=== PATIENT | female | born 1945 | race Caucasian/White ===

== ENCOUNTER 2017-11-28 14:34 | Inpatient (IN) ==
--- NOTE | 2017-11-28 15:26 | XR ---
EXAM DATE: 11/28/2017 3:23 PM EDT AGE/SEX: 71 years / Female INDICATIONS: Shortness of breath. CLINICAL DATA: This is the patient's initial encounter. Patient reports that signs and symptoms have been present for 1 day and indicates a pain score of 0/10. MEDICAL/SURGICAL HISTORY: Congestive heart failure. Pacemaker. COMPARISON: [facility] [place], CHEST SINGLE AP, 04/16/2015. . FINDINGS: A single AP view of the chest demonstrates the lungs to be symmetrically aerated without evidence of mass, infiltrate or effusion. The patient is a left-sided bipolar pacer. The heart is enlarged.. Oss eous structures are intact. CONCLUSION: Heart remains enlarged. Lungs are clear. Electronically signed by: John Braswell MD 11/28/2017 3:25 PM EDT
--- NOTE | 2017-11-28 15:27 | ED ---
HPI General Chief Complaint: Chest Pain Stated Complaint: SOB Time Seen by Provider: 11/28/17 14:49 Source: patient Mode of arrival: ambulatory Limitations: no limitations History of Present Illness HPI narrative: 71-year-old female complains of coughing shortness of breath and chest pain. Patient states that she started having persistent dry cough for the past 4 days. Patient states that occasionally she started having substernal chest pain with coughing spells. Patient states that she does not have chest pain with bowel severe coughing. Patient states the pain aching pain substernal pain associated with coughing. Patient denies any pain radiation. Patient denies palpitation nausea diaphoresis. Patient has history of CHF and status post AICD placement. Patient is a smoker. Patient states that she has occasionally wheezing. Patient denies any fever chills. Patient denies history hypertension, diabetes, hyperlipidemia. 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 complaint: chest pain Complete Quality Measures for STEMI Alert Patients STEMI Alert: No Onset (ago): day(s) Duration: intermittent Onset: other (Chest pain associated with severe bouts of coughing) Pain location: substernal Severity: moderate Severity scale (1-10): 5 Quality: aching Pain radiation: none Relieving factors: nothing Exacerbating factors: other (Coughing) Context: recent illness Associated symptoms: cough Treatments prior to arrival chest pain: none Related Data Home Medications Medication Instructions Recorded Confirmed carvedilol 3.125 mg PO DAILY 11/28/17 11/28/17 furosemide 20 mg PO BID 11/28/17 11/28/17 lisinopril 2.5 mg PO DAILY 11/28/17 11/28/17 Allergies Allergy/AdvReac Type Severity Reaction Status Date / Time erythromycin base Allergy Severe Unverified 11/03/16 12:31 Review of Systems ROS: all other systems reviewed are negative [facility] Medical History Medical History Cardiac defibrillator in place (Acute) Congestive heart failure (Acute) Social History Social History Substance History: No History of Abuse Second Hand Smoke Exposure: Yes Smoking Status: Current every day smoker Tobacco Type: Cigarettes How Often Do You Have a Drink Containing Alcohol: Never Recent Travel in [facility] within the Last 8 Weeks: No Recent Out of Country Travel within the Last 8 Weeks: No Immunization History Tetanus Immunization: Unsure Hx Influenza Vaccine This Season: Yes Exam Narrative Exam Narrative: GENERAL: Well-nourished, well-developed patient. SKIN: Focused skin assessment warm/dry. HEAD: Normocephalic. EYES: No scleral icterus. No injection or drainage. NECK: Supple, trachea midline. No JVD or lymphadenopathy. CARDIOVASCULAR: Regular rate and rhythm without murmurs, gallops, or rubs. RESPIRATORY: Breath sounds equal bilaterally. No accessory muscle use. Mild expiratory wheezes bilaterally. Few rhonchi at the bases. GASTROINTESTINAL: Abdomen soft, non-tender, nondistended. MUSCULOSKELETAL: No cyanosis, or edema. BACK: Nontender without obvious deformity. No CVA tenderness. Neurologic exam normal. Course Initial Documented Vital Signs Temperature 97.5 F L 11/28/17 14:35 Pulse Rate 110 H 11/28/17 14:35 Respiratory Rate 22 11/28/17 14:35 Blood Pressure 146/76 H 11/28/17 14:35 Pulse Oximetry 95 11/28/17 14:35 Last Documented Vital Signs Temperature 97.8 F 11/28/17 14:48 Pulse Rate 90 11/28/17 17:22 Respiratory Rate 20 11/28/17 15:22 Blood Pressure 167/84 H 11/28/17 17:22 Pulse Oximetry 95 11/28/17 17:24 Medical Decision Making MDM Narrative Medical decision making narrative: 71-year-old female with coughing shortness of breath and chest pain associated with the coughing. Patient has history of CHF and status post AICD placement. EKG showed pacer rhythm. Medical Screen Exam Complete: Yes Emergency Medical Condition: Yes Differential Diagnosis Differential Diagnosis: Differential diagnosis including bronchitis, pneumonia, PE, pneumothorax, angina, ND. Lab Data Lab results reviewed: Yes I reviewed the patient's lab results. Result diagrams: 11/28/17 15:40 11/28/17 15:40 Lab Results 11/28/17 11/28/17 11/28/17 Range/Units 15:40 15:40 15:40 WBC 8.0 (4.0-11.0) th/mm3 RBC 5.11 (4.00-5.30) mil/mm3 Hgb 14.9 (11.6-15.3) gm/dL Hct 45.2 (35.0-46.0) % MCV 88.5 (80.0-100.0) fL MCH 29.2 (27.0-34.0) pg MCHC 33.0 (32.0-36.0) % RDW 14.1 (11.6-17.2) % Plt Count 161 (150-450) th/mm3 MPV 9.5 (7.0-11.0) fL Neut % (Auto) 64.1 (16.0-70.0) % Lymph % (Auto) 28.6 (9.0-44.0) % [place] % (Auto) 6.9 (0.0-8.0) % Eos % (Auto) 0.0 (0.0-4.0) % Baso % (Auto) 0.4 (0.0-2.0) % Neut # (Auto) 5.1 (1.8-7.7) th/mm3 Lymph # (Auto) 2.3 (1.0-4.8) th/mm3 [place] # (Auto) 0.6 (0.0-0.9) th/mm3 Eos # (Auto) 0.0 (0.0-0.4) th/mm3 Baso # (Auto) 0.0 (0.0-0.2) th/mm3 WBC Differential . Differential Comment Auto diff final PT 11.5 (9.8-11.6) sec INR 1.1 Ratio APTT 28.7 (24.3-30.1) sec Sodium 141 (136-145) meq/L Potassium 4.0 (3.5-5.1) meq/L Chloride 109 H (98-107) meq/L Carbon Dioxide 22.9 (21.0-32.0) meq/L Anion Gap 9 (5-15) meq/L BUN 18 (7-18) mg/dL Creatinine 0.86 (0.50-1.00) mg/dL Estimated GFR 65 L (>89) mL/min Random Glucose 136 H (74-106) mg/dL Calcium 9.0 (8.5-10.1) mg/dL Total Bilirubin 2.5 H (0.2-1.0) mg/dL AST 20 (15-37) U/L ALT 24 (10-53) U/L Alkaline Phosphatase 75 (45-117) U/L Total Creatine Kinase (26-192) U/L Troponin I 0.21 H (0.02-0.05) ng/mL B-Natriuretic Peptide (0-100) pg/mL Total Protein 7.6 (6.4-8.2) g/dL Albumin 3.7 (3.4-5.0) g/dL 11/28/17 11/28/17 Range/Units 15:40 15:40 WBC (4.0-11.0) th/mm3 RBC (4.00-5.30) mil/mm3 Hgb (11.6-15.3) gm/dL Hct (35.0-46.0) % MCV (80.0-100.0) fL MCH (27.0-34.0) pg MCHC (32.0-36.0) % RDW (11.6-17.2) % Plt Count (150-450) th/mm3 MPV (7.0-11.0) fL Neut % (Auto) (16.0-70.0) % Lymph % (Auto) (9.0-44.0) % [place] % (Auto) (0.0-8.0) % Eos % (Auto) (0.0-4.0) % Baso % (Auto) (0.0-2.0) % Neut # (Auto) (1.8-7.7) th/mm3 Lymph # (Auto) (1.0-4.8) th/mm3 [place] # (Auto) (0.0-0.9) th/mm3 Eos # (Auto) (0.0-0.4) th/mm3 Baso # (Auto) (0.0-0.2) th/mm3 WBC Differential Differential Comment PT (9.8-11.6) sec INR Ratio APTT (24.3-30.1) sec Sodium (136-145) meq/L Potassium (3.5-5.1) meq/L Chloride (98-107) meq/L Carbon Dioxide (21.0-32.0) meq/L Anion Gap (5-15) meq/L BUN (7-18) mg/dL Creatinine (0.50-1.00) mg/dL Estimated GFR (>89) mL/min Random Glucose (74-106) mg/dL Calcium (8.5-10.1) mg/dL Total Bilirubin (0.2-1.0) mg/dL AST (15-37) U/L ALT (10-53) U/L Alkaline Phosphatase (45-117) U/L Total Creatine Kinase 63 (26-192) U/L Troponin I (0.02-0.05) ng/mL B-Natriuretic Peptide Greater than 5000 H (0-100) pg/mL Total Protein (6.4-8.2) g/dL Albumin (3.4-5.0) g/dL Imaging Data Attestation: I personally reviewed and interpreted this imaging study as follows : Radiologist's impression: Chest X-Ray 11/28/17 15:06 CONCLUSION: Heart remains enlarged. Lungs are clear. Discharge Plan Discharge Disposition Patient Disposition: 30 Still Patient Discharge Details Diagnosis: Non-ST elevation ND (NSTEMI), Cardiomyopathy Physicians Team ED Provider: Gio Freeman Primary Care Provider: UNKNOWN, Rxs /Orders / Referrals /Forms Prescriptions: No Action carvedilol 3.125 mg Tablet 3.125 mg PO DAILY RF: 0 furosemide 20 mg Tablet 20 mg PO BID RF: 0 lisinopril 2.5 mg Tablet 2.5 mg PO DAILY RF: 0 Discharge Instructions Patient Printed Instructions: Chest Pain (ED) Discharge Interventions Interventions: Vital Signs Last Done: 11/28/17 17:22 Status ED Status: With Doctor
[2017-11-28 15:54] LABS: Baso % (Auto) 0.4 % (0.0-2.0); Hematocrit 45.2 % (35.0-46.0); Hemoglobin 14.9 gm/dL (11.6-15.3); Lymph # (Auto) 2.3 th/mm3 (1.0-4.8); Lymph % (Auto) 28.6 % (9.0-44.0); Mean Corpuscular Hemoglobin 29.2 pg (27.0-34.0); Mean Corpuscular Volume 88.5 fL (80.0-100.0); Mean Platelet Volume 9.5 fL (7.0-11.0); Mono # (Auto) 0.6 th/mm3 (0.0-0.9); Mono % (Auto) 6.9 % (0.0-8.0); Neut # (Auto) 5.1 th/mm3 (1.8-7.7); Neut % (Auto) 64.1 % (16.0-70.0); Platelet Count 161 th/mm3 (150-450); Red Blood Count 5.11 mil/mm3 (4.00-5.30); Red Cell Distribution Width 14.1 % (11.6-17.2)
[2017-11-28 16:03] LABS: Activated Partial Thrombo Time 28.7 sec (24.3-30.1); INR 1.1 Ratio; Prothrombin Time 11.5 sec (9.8-11.6)
[2017-11-28 16:15] LABS: Albumin 3.7 g/dL (3.4-5.0); Anion Gap 9 meq/L (5-15); Aspartate Aminotransferase 20 U/L (15-37); Blood Urea Nitrogen 18 mg/dL (7-18); Carbon Dioxide 22.9 meq/L (21.0-32.0); Chloride 109 meq/L (98-107); Glomerular Filtration Rate 65 mL/min (>89); Glucose,Random 136 mg/dL (74-106); Sodium 141 meq/L (136-145)
[2017-11-28 16:16] LABS: Alanine Aminotransferase 24 U/L (10-53)
[2017-11-28 16:20] LABS: Alkaline Phosphatase 75 U/L (45-117); Total Protein 7.6 g/dL (6.4-8.2); Troponin I 0.21 ng/mL (0.02-0.05)
--- NOTE | 2017-11-28 18:14 | P.HPIM ---
History of Present Illness Primary Care Physician: UNKNOWN History of Present Illness: 71 year old female with history of CHF and severe nonischemic cardiomyopathy with AICD in place presenting with worsening shortness of breath. The patient reports at baseline she has shortness of breath chronically but in the last three days it has acutely worsened. She denies any lower extremity edema. She reports she has to remain upright in order to breathe. She endorses paroxysmal nocturnal dyspnea and severe orthopnea. She complains of a dry cough that is also chronic but has acutely worsened in the last couple days. She also feels that the lisinopril might have been contributing to her cough. She endorses substernal chest pain that she attributes to coughing. She also complains of back pain from the position she has been having to maintain in order to breathe. She smokes about 2 cigarettes a day but hasn't had any in the past 3-4 weeks. She denies fever, abdominal pain , nausea, vomiting, or dysuria. She endorses some wheezing. Her exercise tolerance is extremely poor and lately in the past couple days she states she hasn't been able to even walk a few steps without having to stop to catch her breath. She follows with a manager stone in [place]. She states her last echocardiogram was back in April this year. The last time she was admitted here at [place] was in March 2015 where she was first diagnosed with congestive heart failure. At that time echocardiogram showed EF 15-20% with diffuse hypokinesis; cardiac catheterization was also done which showed severely reduced of EF 10-15% and single-vessel coronary artery disease involving a small caliber obtuse marginal. She was discharged with a LifeVest and ultimately had an AICD placed. We discussed her code status at length and the patient states that even though her son and granddaughter may disagree, she does not wish to have CPR or intubation in the event that she coded. - Diagnosis (1) CHF exacerbation (2) Non-ST elevation NE (NSTEMI) Review of Systems All other systems reviewed negative except as stated in [facility] - History History Provided By: Patient - Medical History Medical History: Medical History (Last Reviewed 11/28/17 @ 15:25 by Gio Freeman MD) Cardiac defibrillator in place Congestive heart failure - Surgical History Surgical History: Surgical History (Last Updated 11/28/17 @ 20:55 by Whitney Onofre MD) H/O cardiac catheterization History of implantable cardioverter-defibrillator (ICD) placement - Family History Family History: Family History (Last Updated 11/28/17 @ 18:23 by Whitney Onofre MD) Brother Coronary artery disease Mother Coronary artery disease Sister Coronary artery disease Other Diabetes Hypertension - Social History I have reviewed the patient's Social History: Yes - Tobacco History Second Hand Smoke Exposure: Yes Tobacco Use In Past 30 Days: Yes Smoking Status: Current every day smoker Tobacco Type: Cigarettes - Alcohol History How Often Do You Have a Drink Containing Alcohol: Never - Substance Use History Substance History: No History of Abuse - Travel History Recent Travel in the [place] Within the Last 8 Weeks: No Recent Travel Out of the Country Within the Last 8 Weeks: No - Immunization History Tetanus Immunization: Unsure Hx Influenza Vaccine This Season: Yes Medications and Allergies Allergies Allergy/AdvReac Type Severity Reaction Status Date / Time erythromycin base Allergy Severe Unverified 11/03/16 12:31 Home Medications Medication Instructions Recorded Confirmed Type carvedilol 3.125 mg PO DAILY 11/28/17 11/28/17 History furosemide 20 mg PO BID 11/28/17 11/28/17 History lisinopril 2.5 mg PO DAILY 11/28/17 11/28/17 History Exam Vital signs: Vital Signs 11/28/17 14:35 11/28/17 14:48 11/28/17 15:22 Temperature 97.5 F L 97.8 F Pulse Rate 110 H 102 H 90 Respiratory Rate 22 26 H 20 Blood Pressure 146/76 H 161/72 H Pulse Oximetry 95 99 11/28/17 17:22 11/28/17 17:24 Temperature Pulse Rate 90 Respiratory Rate Blood Pressure 167/84 H Pulse Oximetry 95 95 Intake & Output 11/27/17 11/28/17 11/28/17 18:59 06:59 18:59 Weight 51.256 kg Narrative: GENERAL: Elderly, thin, chronically ill-appearing female sitting up in bed in [facility]. SKIN: Warm and dry. HEENT: AT/NC. Pupils equal and round. MMM. NECK: Supple no tender LAD or JVD. HEART: Distant heart sounds but otherwise RRR no m/r/g. LUNGS: Appears short of breath when she talks. She has some wheezes and rhonchi at the bases. ABDOMEN: +BS, soft, NT, ND. EXTREMITIES: No LE edema. 2+ pedal pulses. NEURO: Awake and alert. Results - Labs CBC & Chem 7: 11/28/17 15:40 11/28/17 15:40 Labs: Short CBC 11/28/17 Range/Units 15:40 WBC 8.0 (4.0-11.0) th/mm3 Hgb 14.9 (11.6-15.3) gm/dL Hct 45.2 (35.0-46.0) % Plt Count 161 (150-450) th/mm3 BMP 11/28/17 15:40 Sodium 141 Potassium 4.0 Chloride 109 H Carbon Dioxide 22.9 BUN 18 Creatinine 0.86 Calcium 9.0 Cardiac Enzymes 11/28/17 11/28/17 Range/Units 15:40 15:40 Total Creatine Kinase 63 (26-192) U/L Troponin I 0.21 H (0.02-0.05) ng/mL Liver Function 11/28/17 Range/Units 15:40 Total Bilirubin 2.5 H (0.2-1.0) mg/dL AST 20 (15-37) U/L ALT 24 (10-53) U/L Alkaline Phosphatase 75 (45-117) U/L Albumin 3.7 (3.4-5.0) g/dL - Imaging Impressions Chest X-Ray 11/28/17 15:06 CONCLUSION: Heart remains enlarged. Lungs are clear. Caprini VTE Risk Assessment Caprini VTE Risk Assessment: Moderate/High Risk (score >= 2) Caprini Risk Assessment Model: Point Value = 1 Point Value = 2 Point Value = 3 Point Value = 5 Age 41-60 Minor surgery BMI > 25 kg/m2 Swollen legs Varicose veins or History of unexplained or recurrent spontaneous Oral contraceptives or hormone replacement Sepsis (< 1 month) Serious lung disease, including pneumonia (< 1 month) Abnormal pulmonary function Acute myocardial infarction Congestive heart failure (< 1 month) History of inflammatory bowel disease Medical patient at bed rest Age 61-74 Arthroscopic surgery Major open surgery (> 45 min) Laparoscopic surgery (> 45 min) Malignancy Confined to bed (> 72 hours) Immobilizing plaster cast Central venous access Age >= 75 History of VTE Family history of VTE Factor V Leiden Prothrombin [id number] Lupus anticoagulant Anticardiolipin antibodies Elevated serum homocysteine Heparin-induced thrombocytopenia Other congenital or acquired thrombophilia Stroke (< 1 month) Elective arthroplasty Hip, pelvis, or leg fracture Acute spinal cord injury (< 1 month) Prophylaxis Regimen: Total Risk Factor Score Risk Level Prophylaxis Regimen 0-1 Low Early ambulation 2 Moderate Order ONE of the following: *Sequential Compression Device (SCD) *Heparin 5000 units SQ BID 3-4 Higher Order ONE of the following medications: *Heparin 5000 units SQ TID *Enoxaparin/Lovenox 40 mg SQ daily (WT < 150 kg, CrCl > 30 mL/min) *Enoxaparin/Lovenox 30 mg SQ daily (WT < 150 kg, CrCl > 10-29 mL/min) *Enoxaparin/Lovenox 30 mg SQ BID (WT < 150 kg, CrCl > 30 mL/min) AND/OR *Sequential Compression Device (SCD) 5 or more Highest Order ONE of the following medications: *Heparin 5000 units SQ TID (Preferred with Epidurals) *Enoxaparin/Lovenox 40 mg SQ daily (WT < 150 kg, CrCl > 30 mL/min) *Enoxaparin/Lovenox 30 mg SQ daily (WT < 150 kg, CrCl > 10-29 mL/min) *Enoxaparin/Lovenox 30 mg SQ BID (WT < 150 kg, CrCl > 30 mL/min) AND *Sequential Compression Device (SCD) Assessment and Plan - Assessment (1) CHF exacerbation Code(s): I50.9 - Heart failure, unspecified Status: Acute (2) Non-ST elevation NE (NSTEMI) Code(s): I21.4 - Non-ST elevation (NSTEMI) myocardial infarction Status: Acute - Plan 71-year-old female with severe nonischemic cardiomyopathy with AICD in place admitted for acute CHF exacerbation. 1. CHF exacerbation BNP greater than 5000 CXR demonstrating cardiomegaly otherwise no pulmonary edema, personally reviewed by me Troponin mildly elevated 0.21 likely secondary to heart strain Lasix 40 mg IV twice daily though I am not sure how much this will improve her symptoms given no significant pulmonary edema Check 2D echo since it has been greater than 6 months Resume home carvedilol and lisinopril Start spironolactone Consider the addition of digoxin for symptom improvement Consider palliative care consult as patient with end-stage CHF Cardiology consultation 2. NSTEMI/chest pain Troponin 0.21, likely secondary to demand ischemia from CHF exacerbation EKG shows ventricularly paced rhythm Cardiology has been consulted. In the ED, Dr. Quach was reached who did not recommend heparin drip as he felt the elevated troponin was also from demand Nevertheless, will trend serial enzymes and EKGs Morphine PRN chest pain Supplemental O2 to maintain sats above 92% Nitro paste q6 ASA daily Resume home carvedilol DVT prophylaxis: Lovenox Code Status: DNR Discussed Condition With: The patient and Dr. Freeman
[2017-11-28] MEDS ORDERED: Acetaminophen 325 MG Tablet PO PRN (18:19)
[2017-11-28] MEDS ORDERED: Bisacodyl 10 MG Supp RECTAL PRN (18:19)
[2017-11-28] MEDS ORDERED: Morphine Inj 4 MG/ML Vial IV.PUSH PRN (21:01)
[2017-11-28] MEDS: Senna/Docusate Sodium 8.6/50 MG Tablet PO SCH (21:26)
[2017-11-28 22:26] LABS: Troponin I 0.18 ng/mL (0.02-0.05)
[2017-11-28 23:00] LABS: Bacteria,Urine Rare /hpf; Bilirubin,Urine Negative (Negative); Clarity,Urine Clear (Clear); Color,Urine Straw (Yellw/Straw); Glucose,Urine (UA) Negative (Negative); Hyaline Casts,Urine 10 /lpf (0-3); Leukocyte Esterase,Urine Moderate (Negative); Nitrite,Urine Negative (Negative); Specific Gravity,Urine 1.004 (1.002-1.035); Squamous Epithelial Cell,Urine 1 /hpf (0-5)
[2017-11-29 06:47] LABS: Hematocrit 42.6 % (35.0-46.0); Hemoglobin 14.2 gm/dL (11.6-15.3); Mean Corpuscular HGB Conc 33.3 % (32.0-36.0); Mean Corpuscular Hemoglobin 29.5 pg (27.0-34.0); Mean Corpuscular Volume 88.6 fL (80.0-100.0); Mean Platelet Volume 9.5 fL (7.0-11.0); Platelet Count 137 th/mm3 (150-450); Red Blood Count 4.81 mil/mm3 (4.00-5.30); White Blood Count 5.3 th/mm3 (4.0-11.0)
[2017-11-29 07:40] LABS: Calcium 8.6 mg/dL (8.5-10.1); Carbon Dioxide 29.6 meq/L (21.0-32.0); Potassium 3.2 meq/L (3.5-5.1)
[2017-11-29 07:43] LABS: Troponin I 0.21 ng/mL (0.02-0.05)
[2017-11-29] MEDS ORDERED: Aspirin 325 MG Tablet PO SCH (09:00)
[2017-11-29] MEDS: Spironolactone 25 MG Tablet PO SCH (09:29)
[2017-11-29] MEDS: Lisinopril 5 MG Tablet PO SCH (09:29)
[2017-11-29] MEDS: Enoxaparin Inj 40 MG/0.4 ML Syringe SQ SCH (09:30)
--- NOTE | 2017-11-29 12:31 | MB ---
cc: Armando York DO DATE: 11/29/2017 REASON FOR CONSULTATION: Shortness of breath, elevated troponin. HISTORY OF PRESENT ILLNESS: Keshia Arthur is a pleasant 71-year-old female who presented to [facility] due to shortness of breath. She states that at baseline she has shortness of breath chronically, but the past 3-4 days it has been getting acutely worse. She denies any lower extremity edema. In discussing her dietary habits, she states that she eats at home mostly, but does put some mild salt on her food. She does not watch her weights at home. She has also noticed some shortness of breath while lying flat at night. Lastly, she has had a dry cough, which seems to be worse when she lies flat. Lastly, she does have some chest pain, but it hurts more with coughing. In seeing her, she states that after being diuresed lately last night that her breathing is better but not back to normal yet. She follows with Dr. Burk in [place], but is planning to move here to [facility] in the near future. PAST MEDICAL HISTORY: 1. Nonischemic cardiomyopathy. 2. Tobacco abuse. 3. Mild to moderate coronary artery disease. PAST SURGICAL HISTORY: 1. Cardiac catheterization (04/18/2015). Left main normal. LAD normal with 3 diagonals. Left circumflex tortuous, but no significant disease. First OM was small with 90% diffuse stenosis. Second OM was small and 100% occluded in the proximal to mid portion. The distal segment fills retrogradely from the LAD. Third OM 30%. RCA has a 50% long tubular lesion. 2. Unknown AICD placement. ALLERGIES: ERYTHROMYCIN. MEDICATIONS: 1. Coreg 3.125 mg daily. 2. Lisinopril 2.5 mg daily. 3. Lasix 20 mg daily (previously on 20 mg b.i.d., but changed in 05/2017). FAMILY HISTORY: Denies premature coronary artery disease or sudden cardiac within the family. SOCIAL HISTORY: The patient denies tobacco patient denies alcohol or drug abuse. She does smoke anywhere from no cigarettes to 3 cigarettes a day. She is contemplating quitting at this time. REVIEW OF SYSTEMS: Fourteen systems were reviewed including osteopathic. Pertinent positives and negatives above, otherwise negative. PHYSICAL EXAMINATION: VITAL SIGNS: Temperature 98.1, heart rate 94, blood pressure 135/79, respirations 18, pulse oximetry 95% on room air. GENERAL: The patient appears well, in no acute distress, alert, awake and oriented x3. HEENT: Extraocular muscles intact. Mucous membranes moist. NECK: Supple. No JVD at 45 degrees. No carotid bruits heard bilaterally. Carotid upstroke is brisk in nature. HEART: Regular rate and rhythm. Positive first and second heart sounds with no murmurs, gallops or rubs. LUNGS: Decreased breath sounds bilaterally with mild wheezing noted. ABDOMEN: Soft, nontender, nondistended, no organomegaly noted. EXTREMITIES: Show no clubbing, cyanosis or edema. Femoral and distal pulses are intact bilaterally. NEUROLOGIC: No focal deficits. SKIN: Warm, dry and intact. OSTEOPATHIC: No kyphoscoliosis, lordosis, or paraspinal tender points. LABORATORY DATA: Hemoglobin 14.2, hematocrit 42.6, platelets 137. Potassium 3.2, BUN 0.85, BUN 22, creatinine 0.85. Troponin 0.21. BNP greater than 5000. Electrocardiogram (11/29/2017 at 0333): Sinus rhythm, ventricular paced. IMPRESSION: 1. Acute decompensated systolic heart failure. 2. History of nonischemic cardiomyopathy with an ejection fraction of 15%-20% (04/18/2015) with an AICD in place. 3. Elevated troponin, most likely type 2 non-ST elevation myocardial infarction. 4. Tobacco abuse. 5. Shortness of breath. 6. Chest pain, which appears to be musculoskeletal in nature. RECOMMENDATIONS: 1. Ms. Arthur presented with significant shortness of breath and appears to be fluid overloaded with acute decompensated heart failure. 2. We will attempt to diurese her as possible. 3. Overall, she has been on the same heart failure medications for some time and I believe that these should be escalated to try to attempt to help her with her cardiomyopathy as much as possible. 4. I spoke to her about her salt intake. 5. I also did discuss with her keeping her weights at home and if elevating more than 2 pounds in 24 hours or 3 pounds in 48 hours, she should increase her diuretic. 6. As far as her elevated troponins, this appears to be a type 2 [id number] myocardial infarction. I did discuss with her considerations of an inpatient stress testing, but she overall would like to avoid it due to a previous episode of getting sick from it and also DNR status. Ultimately, I feel that her elevated troponins are due to the heart failure. 7. She did have some minor chest pain, but this appeared to happen when she was coughing, consistent with musculoskeletal chest pain. 8. I did speak to her for greater than 3 minutes about tobacco cessation. 9. She plans on moving here to [facility], and I did discuss with her that she can follow up with me in the office or with the previous watch supervisor she had seen here at that time. Thank you for allowing me to see Keshia Arthur. If there are any questions, please do not hesitate to call. DO MARVA Broderick/katelynn , 11:49 AM , 12:02 PM DELIA
[2017-11-29] MEDS: Senna/Docusate Sodium 8.6/50 MG Tablet PO SCH ×2 (13:14→21:01)
--- NOTE | 2017-11-29 13:14 | ECHRPT ---
Indication: CARDIOMYOPATHY CONCLUSIONS The left ventricular systolic function is severely reduced with an estimated ejection fraction less than 20%. Severely dilated left ventricle. There is global left ventricular dysfunction. The right ventricular systoilc function is moderately decreased. Mild mitral valve regurgitation. BP: / HR: Rhythm: MEASUREMENTS (Male / Female) Normal Values Technical Quality:Fair 2D ECHO LV Diastolic Diameter PLAX 6.8 cm 4.2 - 5.9 / 3.9 - 5.3 cm LV Systolic Diameter PLAX 6.5 cm IVS Diastolic Thickness 1.0 cm 0.6 - 1.0 / 0.6 - 0.9 cm LVPW Diastolic Thickness 1.0 cm 0.6 - 1.0 / 0.6 - 0.9 cm LV Relative Wall Thickness 0.3 RV Internal Dim ED PLAX 2.5 cm LVOT Diameter 1.8 cm LV Ejection Fraction MOD BP 17.1 % >= 55 % LV Ejection Fraction MOD 4C 12.3 % LV Ejection Fraction 4C AL 11.6 % LV Ejection Fraction MOD 2C 23.1 % LV Ejection Fraction 2C AL 22.2 % M-MODE Aortic Root Diameter MM 2.4 cm LA Systolic Diameter MM 3.6 cm LA Ao Ratio MM 1.5 AV Cusp Separation MM 1.4 cm DOPPLER AV Peak Velocity 115.0 cm/s AV Peak Gradient 5.3 mmHg LVOT Peak Velocity 82.9 cm/s LVOT Peak Gradient 2.7 mmHg AV Area Cont Eq pk 1.8 cm MV Area PHT 6.5 cm TR Peak Velocity 281.0 cm/s TR Peak Gradient 31.6 mmHg Right Atrial Pressure 10.0 mmHg Pulmonary Artery Systolic Pressu 41.6 mmHg Right Ventricular Systolic Press 41.6 mmHg PV Peak Velocity 84.2 cm/s PV Peak Gradient 2.8 mmHg FINDINGS LEFT VENTRICLE The left ventricular systolic function is severely reduced with an estimated ejection fraction less than 20%. Severely dilated left ventricle. Wall thickness is normal. There is global left ventricular dysfunction. RIGHT VENTRICLE A pacemaker wire is noted. The right ventricular systoilc function is moderately decreased. LEFT ATRIUM The left atrial size is normal. RIGHT ATRIUM The right atrial size is normal. There is a pacemaker wire present in the right atrial cavity. ATRIAL SEPTUM Normal atrial septal thickness without atrial level shunting by limited color doppler interrogation. AORTA The aortic root and proximal ascending aorta are normal in size on limited imaging. MITRAL VALVE Structurally normal mitral valve. Mild mitral valve regurgitation. The mitral valve regurgitation jet is directed centrally due to poor leaflet coaptation. No mitral valve stenosis. AORTIC VALVE Trileaflet aortic valve. No aortic valve stenosis or regurgitation. TRICUSPID VALVE Structurally normal tricuspid valve. There is trace tricuspid valve regurgitation. The estimated pulmonary arterial pressure is 41.6 mmHg. PULMONARY VALVE No pulmonary valve regurgitation or stenosis. VESSELS The inferior vena cava is normal in size. PERICARDIUM No pericardial effusion. Armando York DO (Electronically Signed) Final Date:29 November 2017 13:13
[2017-11-29] MEDS ORDERED: Potassium Chloride 25 MEQ Effervescent Tablet PO ONE (14:39)
--- NOTE | 2017-11-29 14:43 | P.PN ---
Subjective Interval history: complains of dry cough - for months- almost at the same time with SEMAJ brian GUZMAN- but nothing done chronic smoker- cut down to 1-2 sticks past 2 weeks Physical Exam Vital signs: Vital Signs 11/28/17 14:48 11/28/17 15:22 11/28/17 17:22 Temperature 97.8 F Pulse Rate 102 H 90 90 Respiratory Rate 26 H 20 Blood Pressure 161/72 H 167/84 H Pulse Oximetry 99 95 11/28/17 17:24 11/28/17 19:00 11/28/17 20:00 Temperature 98 F Pulse Rate 97 H 95 H Respiratory Rate 18 24 Blood Pressure 151/85 H 147/91 H Pulse Oximetry 95 93 L 95 11/28/17 21:57 11/29/17 00:00 11/29/17 03:43 Temperature 98.3 F Pulse Rate 74 80 82 Respiratory Rate 24 24 16 Blood Pressure 136/77 Pulse Oximetry 98 95 11/29/17 04:00 11/29/17 07:00 11/29/17 08:00 Temperature 97.8 F 98.1 F Pulse Rate 80 91 H 76 Respiratory Rate 22 18 Blood Pressure 145/91 H 135/79 Pulse Oximetry 97 95 11/29/17 09:00 11/29/17 10:00 11/29/17 12:00 Temperature 97.9 F Pulse Rate 96 H 72 68 Respiratory Rate 18 Blood Pressure 138/67 Pulse Oximetry 95 11/29/17 13:00 11/29/17 14:00 Temperature Pulse Rate 68 78 Respiratory Rate Blood Pressure Pulse Oximetry Intake & Output 11/28/17 11/29/17 11/29/17 18:59 06:59 18:59 Intake Total 480 / 480 Output Total 1200 / 1200 Balance -720 / -720 Weight 51.256 kg 51.2 kg Intake: Oral 480 / 480 Output: Urine 1200 / 1200 Stool 0 / 0 Narrative: awake rafiq lert, no acute distress anciteric decrased breath souds, no rales, no wheezes regular rhythma bdomen soft, nontender extremities no edmea jeuro exam- nonf coal Results - Labs CBC & Chem 7: 11/29/17 05:03 11/29/17 05:03 Laboratory Results - last 24 hr 11/28/17 11/28/17 11/28/17 15:40 15:40 15:40 WBC 8.0 RBC 5.11 Hgb 14.9 Hct 45.2 MCV 88.5 MCH 29.2 MCHC 33.0 RDW 14.1 Plt Count 161 MPV 9.5 Neut % (Auto) 64.1 Lymph % (Auto) 28.6 [place] % (Auto) 6.9 Eos % (Auto) 0.0 Baso % (Auto) 0.4 Neut # (Auto) 5.1 Lymph # (Auto) 2.3 [place] # (Auto) 0.6 Eos # (Auto) 0.0 Baso # (Auto) 0.0 WBC Differential . Differential Comment Auto diff final PT 11.5 INR 1.1 APTT 28.7 Sodium 141 Potassium 4.0 Chloride 109 H Carbon Dioxide 22.9 Anion Gap 9 BUN 18 Creatinine 0.86 Estimated GFR 65 L Random Glucose 136 H Fasting Glucose Calcium 9.0 Total Bilirubin 2.5 H AST 20 ALT 24 Alkaline Phosphatase 75 Total Creatine Kinase Troponin I 0.21 H B-Natriuretic Peptide Total Protein 7.6 Albumin 3.7 Urine Color Urine Clarity Urine pH Ur Specific [place]arden Urine Protein Urine Glucose (UA) Urine Ketones Urine Occult Blood Urine Nitrate Urine Bilirubin Urine Urobilinogen Ur Leukocyte Esterase Urine RBC Urine WBC Ur Squamous Epith Cells Urine Bacteria Hyaline Casts Micro UA Comment Ur Microscopic Review Urine Culture Comments 11/28/17 11/28/17 11/28/17 15:40 15:40 21:28 WBC RBC Hgb Hct MCV MCH MCHC RDW Plt Count MPV Neut % (Auto) Lymph % (Auto) [place] % (Auto) Eos % (Auto) Baso % (Auto) Neut # (Auto) Lymph # (Auto) [place] # (Auto) Eos # (Auto) Baso # (Auto) WBC Differential Differential Comment PT INR APTT Sodium Potassium Chloride Carbon Dioxide Anion Gap BUN Creatinine Estimated GFR Random Glucose Fasting Glucose Calcium Total Bilirubin AST ALT Alkaline Phosphatase Total Creatine Kinase 63 52 Troponin I 0.18 H B-Natriuretic Peptide Greater than 5000 H Total Protein Albumin Urine Color Urine Clarity Urine pH Ur Specific Warden Urine Protein Urine Glucose (UA) Urine Ketones Urine Occult Blood Urine Nitrate Urine Bilirubin Urine Urobilinogen Ur Leukocyte Esterase Urine RBC Urine WBC Ur Squamous Epith Cells Urine Bacteria Hyaline Casts Micro UA Comment Ur Microscopic Review Urine Culture Comments 11/28/17 11/29/17 11/29/17 22:16 05:03 05:03 WBC 5.3 RBC 4.81 Hgb 14.2 Hct 42.6 MCV 88.6 MCH 29.5 MCHC 33.3 RDW 14.0 Plt Count 137 L MPV 9.5 Neut % (Auto) Lymph % (Auto) [place] % (Auto) Eos % (Auto) Baso % (Auto) Neut # (Auto) Lymph # (Auto) [place] # (Auto) Eos # (Auto) Baso # (Auto) WBC Differential Differential Comment PT INR APTT Sodium 146 H Potassium 3.2 L D Chloride 106 Carbon Dioxide 29.6 Anion Gap 10 BUN 22 H Creatinine 0.85 Estimated GFR 66 L Random Glucose Fasting Glucose 88 Calcium 8.6 Total Bilirubin AST ALT Alkaline Phosphatase Total Creatine Kinase 49 Troponin I 0.21 H B-Natriuretic Peptide Total Protein Albumin Urine Color Straw Urine Clarity Clear Urine pH 6.0 Ur Specific Warden 1.004 Urine Protein Negative Urine Glucose (UA) Negative Urine Ketones Negative Urine Occult Blood Small H Urine Nitrate Negative Urine Bilirubin Negative Urine Urobilinogen Less than 2 Ur Leukocyte Esterase Moderate H Urine RBC 1 Urine WBC 17 H Ur Squamous Epith Cells 1 Urine Bacteria Rare H Hyaline Casts 10 Micro UA Comment Culture indicated Ur Microscopic Review Not Reportable Urine Culture Comments Culture indicated 11/29/17 05:03 WBC RBC Hgb Hct MCV MCH MCHC RDW Plt Count MPV Neut % (Auto) Lymph % (Auto) [place] % (Auto) Eos % (Auto) Baso % (Auto) Neut # (Auto) Lymph # (Auto) [place] # (Auto) Eos # (Auto) Baso # (Auto) WBC Differential Differential Comment PT INR APTT Sodium Potassium Chloride Carbon Dioxide Anion Gap BUN Creatinine Estimated GFR Random Glucose Fasting Glucose Calcium Total Bilirubin AST ALT Alkaline Phosphatase Total Creatine Kinase Troponin I B-Natriuretic Peptide Greater than 5000 H Total Protein Albumin Urine Color Urine Clarity Urine pH Ur Specific Warden Urine Protein Urine Glucose (UA) Urine Ketones Urine Occult Blood Urine Nitrate Urine Bilirubin Urine Urobilinogen Ur Leukocyte Esterase Urine RBC Urine WBC Ur Squamous Epith Cells Urine Bacteria Hyaline Casts Micro UA Comment Ur Microscopic Review Urine Culture Comments - Imaging Impressions Chest X-Ray 11/28/17 15:06 CONCLUSION: Heart remains enlarged. Lungs are clear. Assessment and Plan - Assessment (1) CHF exacerbation Code(s): I50.9 - Heart failure, unspecified Status: Acute (2) Non-ST elevation [place] (NSTEMI) Code(s): I21.4 - Non-ST elevation (NSTEMI) myocardial infarction Status: Acute - Plan 71-year-old female with severe nonischemic cardiomyopathy with AICD in place admitted for acute CHF exacerbation. CHF exacerbation with Non ischemic cardiomyopathy EF less than 20% BNP greater than 5000 CXR demonstrating cardiomegaly otherwise no pulmonary edema, personally reviewed by me Troponin mildly elevated 0.21 likely secondary to heart strain Lasix 40 mg IV twice daily Start spironolactone Consider palliative care consult as patient with end-stage CHF Cardiology consultation- apreciate Dr. lester seeing patient NSTEMI/chest pain Troponin 0.21, likely secondary to demand ischemia from CHF exacerbation EKG shows ventricularly paced rhythm Cardiology has been consulted. In the ED, Dr. Quach was reached who did not recommend heparin drip as he felt the elevated troponin was also from demand Nevertheless, will trend serial enzymes and EKGs Morphine PRN chest pain Supplemental O2 to maintain sats above 92% Nitro paste q6 ASA daily carvedilol Hypokalemia- replace po and ff on IV diuretics chronic ough- - can be SEMAJ realted- very "bothersome" CXR negative. patient smoker - get PFTs - start spiriva daily - tussionex bid - will disc GEt a walk test prior to DC DVT prophylaxis: Lovenox Code Status: DNR consider palliative
[2017-11-29] MEDS: Tiotropium Bromide 18 MCG/ACT Inhaler INH SCH (18:07)
[2017-11-29] MEDS: Chlorpheniramine 8 MG/Hydrocodone 10 MG/5 ML UDC PO SCH ×2 (18:08→20:54)
--- NOTE | 2017-11-29 19:42 | ECG ---
Date Performed: 11/28/2017 Time Performed: 14:50:39 PTAGE: 71 years EKG: ELECTRONIC VENTRICULAR PACEMAKER Since previous tracing, no significant change noted ABNORM AL RHYTHM ECG PREVIOUS TRACING : 04/17/2015 08.31.34 DOCTOR: John Ford Interpretating Date/Time 11/29/2017 19:41:01
--- NOTE | 2017-11-29 19:44 | ECG ---
Date Performed: 11/28/2017 Time Performed: 21:14:10 PTAGE: 71 years EKG: Ventricular pacing Pacemaker rhythm - no further analysis Since previous tracing, no signif icant change noted Abnormal ECG PREVIOUS TRACING : 11/28/2017 14.50 DOCTOR: John Ford Interpretating Date/Time 11/29/2017 19:42:05
--- NOTE | 2017-11-29 19:44 | ECG ---
Date Performed: 11/29/2017 Time Performed: 03:33:58 PTAGE: 71 years EKG: Ventricular pacing. Pacemaker rhythm - no further analysis Since previous tracing, no signi ficant change noted Abnormal ECG PREVIOUS TRACING : 11/28/2017 21.14 DOCTOR: John Ford Interpretating Date/Time 11/29/2017 19:42:15
[2017-11-29] MEDS: Potassium Chloride 25 MEQ Effervescent Tablet PO SCH (20:54)
[2017-11-30 06:06] LABS: Hematocrit 45.7 % (35.0-46.0); Hemoglobin 15.4 gm/dL (11.6-15.3); Mean Corpuscular HGB Conc 33.7 % (32.0-36.0); Mean Corpuscular Hemoglobin 29.6 pg (27.0-34.0); Mean Corpuscular Volume 87.8 fL (80.0-100.0); Mean Platelet Volume 9.4 fL (7.0-11.0); Platelet Count 146 th/mm3 (150-450); Red Cell Distribution Width 13.9 % (11.6-17.2); White Blood Count 4.7 th/mm3 (4.0-11.0)
[2017-11-30 06:17] LABS: Calcium 8.5 mg/dL (8.5-10.1); Carbon Dioxide 31.4 meq/L (21.0-32.0); Potassium 3.5 meq/L (3.5-5.1)
[2017-11-30] MEDS: Enoxaparin Inj 40 MG/0.4 ML Syringe SQ SCH (09:20)
[2017-11-30] MEDS: Chlorpheniramine 8 MG/Hydrocodone 10 MG/5 ML UDC PO SCH ×2 (09:20→20:26)
[2017-11-30] MEDS: Lisinopril 5 MG Tablet PO SCH (09:21)
[2017-11-30] MEDS: Senna/Docusate Sodium 8.6/50 MG Tablet PO SCH ×2 (09:23→20:26)
[2017-11-30] MEDS: Spironolactone 25 MG Tablet PO SCH (09:23)
[2017-11-30] MEDS: Tiotropium Bromide 18 MCG/ACT Inhaler INH SCH (09:24)
--- NOTE | 2017-11-30 11:50 | P.PN ---
Subjective Interval history: slept very well :"for the first time" feels great, laying flat now cough improved diuresing very well Physical Exam Vital signs: Vital Signs 11/29/17 12:00 11/29/17 13:00 11/29/17 14:00 Temperature 97.9 F Pulse Rate 68 68 78 Respiratory Rate 18 Blood Pressure 138/67 Pulse Oximetry 95 Pulse Oximetry [Exertion on Room Air] Pulse Oximetry [Resting on Room Air] 11/29/17 15:00 11/29/17 15:40 11/29/17 16:00 Temperature 98.0 F Pulse Rate 71 72 Respiratory Rate 20 Blood Pressure 122/62 Pulse Oximetry 95 Pulse Oximetry [Exertion on Room Air] 96 Pulse Oximetry [Resting on Room Air] 97 11/29/17 17:00 11/29/17 18:00 11/29/17 19:00 Temperature Pulse Rate 68 73 77 Respiratory Rate Blood Pressure Pulse Oximetry Pulse Oximetry [Exertion on Room Air] Pulse Oximetry [Resting on Room Air] 11/29/17 20:00 11/29/17 21:00 11/29/17 21:55 Temperature 98.3 F Pulse Rate 72 78 75 Respiratory Rate 20 18 Blood Pressure 124/68 Pulse Oximetry 95 96 Pulse Oximetry [Exertion on Room Air] Pulse Oximetry [Resting on Room Air] 11/29/17 22:00 11/29/17 23:00 11/30/17 00:00 Temperature Pulse Rate 78 67 61 Respiratory Rate Blood Pressure Pulse Oximetry Pulse Oximetry [Exertion on Room Air] Pulse Oximetry [Resting on Room Air] 11/30/17 01:00 11/30/17 02:00 11/30/17 03:00 Temperature Pulse Rate 62 58 L 61 Respiratory Rate 18 Blood Pressure Pulse Oximetry Pulse Oximetry [Exertion on Room Air] Pulse Oximetry [Resting on Room Air] 11/30/17 03:10 11/30/17 03:19 11/30/17 04:00 Temperature Pulse Rate 59 L 141 H 66 Respiratory Rate Blood Pressure Pulse Oximetry Pulse Oximetry [Exertion on Room Air] Pulse Oximetry [Resting on Room Air] 11/30/17 05:00 11/30/17 06:00 11/30/17 08:00 Temperature 98.0 F Pulse Rate 64 59 L 73 Respiratory Rate 18 Blood Pressure 142/81 H Pulse Oximetry 94 L Pulse Oximetry [Exertion on Room Air] Pulse Oximetry [Resting on Room Air] 11/30/17 10:10 11/30/17 11:00 Temperature 97.8 F Pulse Rate 73 70 Respiratory Rate 14 15 Blood Pressure 120/63 Pulse Oximetry 97 90 L Pulse Oximetry [Exertion on Room Air] Pulse Oximetry [Resting on Room Air] Intake & Output 11/29/17 11/30/17 11/30/17 18:59 06:59 18:59 Intake Total 840 / 840 480 / 480 Output Total 1200 / 1200 1000 / 1000 Balance -360 / -360 -520 / -520 Weight 50.6 kg Intake: Oral 840 / 840 480 / 480 Output: Urine 1200 / 1200 1000 / 1000 Other: Date of Last Bowel Movement 11/28/17 Narrative: awake and alert, no acute distress anicteric no rales, no wheezes regular rhythm, paced on telemetry abdomen soft, nontender extremities no edmea nuero exam- unremarkable Results - Labs CBC & Chem 7: 11/30/17 05:21 11/30/17 05:21 Laboratory Results - last 24 hr 11/30/17 11/30/17 05:21 05:21 WBC 4.7 RBC 5.20 Hgb 15.4 H Hct 45.7 MCV 87.8 MCH 29.6 MCHC 33.7 RDW 13.9 Plt Count 146 L MPV 9.4 Sodium 141 Potassium 3.5 Chloride 102 Carbon Dioxide 31.4 Anion Gap 8 BUN 26 H Creatinine 0.89 Estimated GFR 63 L Random Glucose 90 Calcium 8.5 Microbiology 11/28/17 22:16 Clean Catch Urine Urine Culture - Final 10-50,000 cfu/mL mixed gram positive neyda (probable contaminants) Assessment and Plan - Assessment (1) CHF exacerbation Code(s): I50.9 - Heart failure, unspecified Status: Acute (2) Non-ST elevation [place] (NSTEMI) Code(s): I21.4 - Non-ST elevation (NSTEMI) myocardial infarction Status: Acute - Plan 71-year-old female with severe nonischemic cardiomyopathy with AICD in place admitted for acute CHF exacerbation. CHF exacerbation with Non ischemic cardiomyopathy EF less than 20% BNP greater than 5000 CXR demonstrating cardiomegaly otherwise no pulmonary edema, personally reviewed by me Troponin mildly elevated 0.21 likely secondary to heart strain Lasix 40 mg IV twice daily - diuring well Started on spironolactone - Cardiology ff- may need one mor day of IV diursis- Consider palliative care consult as patient with end-stage CHF - Increase actvity- out of bed to chair NSTEMI/chest pain Troponin 0.21, likely secondary to demand ischemia from CHF exacerbation EKG shows ventricularly paced rhythm Cardiology has been consulted. In the ED, Dr. Quach was reached who did not recommend heparin drip as he felt the elevated troponin was also from demand Morphine PRN chest pain Supplemental O2 to maintain sats above 92% Nitro paste q6- refusing this,. Change to Imdur 30 mg daily ASA daily carvedilol Hypokalemia- replace po and ff on IV diuretics BMP today chronic ough- - can be AUGIE realted- very "bothersome"- , improved with diuresisand tussionex CXR negative. patient smoker - PFTs pending - started spiriva daily - tussionex bid- helped will d/w Cardiology- regarding Augie induced-consider change to other agent - GEt a walk test prior to DC Increase activity DVT prophylaxis: Lovenox Code Status: DNR
--- NOTE | 2017-11-30 12:54 | P.PNCA ---
Subjective Interval history: No events overnight Breathing better, still with some hypoxic episodes No chest pain Physical Exam Vital signs: Vital Signs 11/29/17 13:00 11/29/17 14:00 11/29/17 15:00 Temperature Pulse Rate 68 78 71 Respiratory Rate Blood Pressure Pulse Oximetry Pulse Oximetry [Exertion on Room Air] Pulse Oximetry [Resting on Room Air] 11/29/17 15:40 11/29/17 16:00 11/29/17 17:00 Temperature 98.0 F Pulse Rate 72 68 Respiratory Rate 20 Blood Pressure 122/62 Pulse Oximetry 95 Pulse Oximetry [Exertion on Room Air] 96 Pulse Oximetry [Resting on Room Air] 97 11/29/17 18:00 11/29/17 19:00 11/29/17 20:00 Temperature 98.3 F Pulse Rate 73 77 72 Respiratory Rate 20 Blood Pressure 124/68 Pulse Oximetry 95 Pulse Oximetry [Exertion on Room Air] Pulse Oximetry [Resting on Room Air] 11/29/17 21:00 11/29/17 21:55 11/29/17 22:00 Temperature Pulse Rate 78 75 78 Respiratory Rate 18 Blood Pressure Pulse Oximetry 96 Pulse Oximetry [Exertion on Room Air] Pulse Oximetry [Resting on Room Air] 11/29/17 23:00 11/30/17 00:00 11/30/17 01:00 Temperature Pulse Rate 67 61 62 Respiratory Rate Blood Pressure Pulse Oximetry Pulse Oximetry [Exertion on Room Air] Pulse Oximetry [Resting on Room Air] 11/30/17 02:00 11/30/17 03:00 11/30/17 03:10 Temperature Pulse Rate 58 L 61 59 L Respiratory Rate 18 Blood Pressure Pulse Oximetry Pulse Oximetry [Exertion on Room Air] Pulse Oximetry [Resting on Room Air] 11/30/17 03:19 11/30/17 04:00 11/30/17 05:00 Temperature Pulse Rate 141 H 66 64 Respiratory Rate Blood Pressure Pulse Oximetry Pulse Oximetry [Exertion on Room Air] Pulse Oximetry [Resting on Room Air] 11/30/17 06:00 11/30/17 08:00 11/30/17 10:10 Temperature 98.0 F Pulse Rate 59 L 73 73 Respiratory Rate 18 14 Blood Pressure 142/81 H Pulse Oximetry 94 L 97 Pulse Oximetry [Exertion on Room Air] Pulse Oximetry [Resting on Room Air] 11/30/17 11:00 Temperature 97.8 F Pulse Rate 70 Respiratory Rate 15 Blood Pressure 120/63 Pulse Oximetry 90 L Pulse Oximetry [Exertion on Room Air] Pulse Oximetry [Resting on Room Air] Intake & Output 11/29/17 11/30/17 11/30/17 18:59 06:59 18:59 Intake Total 840 / 840 480 / 480 Output Total 1200 / 1200 1000 / 1000 Balance -360 / -360 -520 / -520 Weight 50.6 kg Intake: Oral 840 / 840 480 / 480 Output: Urine 1200 / 1200 1000 / 1000 Other: Date of Last Bowel Movement 11/28/17 Narrative: awake and alert, no acute distress anicteric no rales, no wheezes regular rhythm, paced on telemetry abdomen soft, nontender extremities no edmea nuero exam- unremarkable Assessment and Plan - Assessment (1) Non-ST elevation [place] (NSTEMI) Code(s): I21.4 - Non-ST elevation (NSTEMI) myocardial infarction Status: Acute (2) Cardiomyopathy Code(s): I42.9 - Cardiomyopathy, unspecified Status: Acute (3) CHF exacerbation Code(s): I50.9 - Heart failure, unspecified Status: Acute - Plan 1) NICM Con't Coreg Cough, so will change Lisinopril to Losartan 2) Decrease salt intake 3) Watch weights at home 2 pounds in 24 hours or 3 pounds in 48 hours, she should increase her diuretic 4) Elevated troponin Appears to be type 2 Decided she would not like stress testing 5) Musculoskeletal chest pain 6) Tobacco cessation 7) Probable discharge tomorrow Will follow up with me in the [facility] [place] office (2) Cardiomyopathy Qualifiers: Cardiomyopathy type: unspecified Qualified Code(s): I42.9 - Cardiomyopathy, unspecified
[2017-11-30 14:00] LABS: Calcium 9.4 mg/dL (8.5-10.1); Carbon Dioxide 32.7 meq/L (21.0-32.0); Potassium 3.7 meq/L (3.5-5.1)
[2017-11-30] MEDS: Potassium Chloride 25 MEQ Effervescent Tablet PO SCH (14:44)
[2017-12-01] MEDS: Chlorpheniramine 8 MG/Hydrocodone 10 MG/5 ML UDC PO SCH (08:44)
[2017-12-01] MEDS: Senna/Docusate Sodium 8.6/50 MG Tablet PO SCH (08:44)
[2017-12-01] MEDS: Enoxaparin Inj 40 MG/0.4 ML Syringe SQ SCH (08:45)
[2017-12-01] MEDS: Spironolactone 25 MG Tablet PO SCH (08:45)
[2017-12-01] MEDS: Tiotropium Bromide 18 MCG/ACT Inhaler INH SCH (08:57)
--- NOTE | 2017-12-01 09:02 | P.DS ---
Date of admission: 11/28/17 18:37 Primary care physician: UNKNOWN Brief History from admission: 71 year old female with history of CHF and severe nonischemic cardiomyopathy with AICD in place presenting with worsening shortness of breath. The patient reports at baseline she has shortness of breath chronically but in the last three days it has acutely worsened. She denies any lower extremity edema. She reports she has to remain upright in order to breathe. She endorses paroxysmal nocturnal dyspnea and severe orthopnea. She complains of a dry cough that is also chronic but has acutely worsened in the last couple days. She also feels that the lisinopril might have been contributing to her cough. She endorses substernal chest pain that she attributes to coughing. She also complains of back pain from the position she has been having to maintain in order to breathe. She smokes about 2 cigarettes a day but hasn't had any in the past 3-4 weeks. She denies fever, abdominal pain , nausea, vomiting, or dysuria. She endorses some wheezing. Her exercise tolerance is extremely poor and lately in the past couple days she states she hasn't been able to even walk a few steps without having to stop to catch her breath. She follows with a valet in [place]. She states her last echocardiogram was back in April this year. The last time she was admitted here at [facility] was in March 2015 where she was first diagnosed with congestive heart failure. At that time echocardiogram showed EF 15-20% with diffuse hypokinesis; cardiac catheterization was also done which showed severely reduced of EF 10-15% and single-vessel coronary artery disease involving a small caliber obtuse marginal. She was discharged with a LifeVest and ultimately had an AICD placed. We discussed her code status at length and the patient states that even though her son and granddaughter may disagree, she does not wish to have CPR or intubation in the event that she coded. DS: Medications - Discharge Medications Prescriptions: carvedilol 3.125 mg PO DAILY #60 tab furosemide 20 mg PO BID #60 tab hydrocodone-acetaminophen 1 tab PO Q6H PRN #12 tab PRN Reason: Pain 5-10 isosorbide mononitrate 30 mg PO DAILY@0700 #30 tab losartan [Cozaar] 25 mg PO DAILY #30 tab spironolactone [Aldactone] 25 mg PO DAILY #30 tab tiotropium bromide [Spiriva with HandiHaler] 18 mcg INH DAILY #30 inh DS: Summary Hospital Course: 71-year-old female with severe nonischemic cardiomyopathy with AICD in place admitted for acute CHF exacerbation. CHF exacerbation with Non ischemic cardiomyopathy EF less than 20% BNP greater than 5000 CXR demonstrating cardiomegaly otherwise no pulmonary edema Troponin mildly elevated 0.21 likely secondary to heart strain Received Lasix 40 mg IV twice daily Started on spironolactone Consider palliative care consult as patient with end-stage CHF -Due to persistent cough, Lisinopril was switched to Losartan. Elevated troponins Troponin 0.21, likely secondary to demand ischemia from CHF exacerbation EKG shows ventricularly paced rhythm Cardiology has been consulted. Patient did not want to undergo stress testing. Supplemental O2 to maintain sats above 92% Nitro paste q6- refusing this,. Change to Imdur 30 mg daily ASA daily carvedilol -Cardiology recommended discharge and follow up in the outpatient setting. Hypokalemia - Improved to 3.7 DNR. - Time Spent with Patient Total time spent providing and/or coordinating discharge services: Greater than 30 minutes Exam Vital signs: Vital Signs 11/30/17 10:00 11/30/17 10:10 11/30/17 11:00 Temperature 97.8 F Pulse Rate 72 73 77 Respiratory Rate 14 15 Blood Pressure 120/63 Pulse Oximetry 97 90 L Pulse Oximetry [Exertion on Room Air] Pulse Oximetry [Resting on Room Air] 11/30/17 12:00 11/30/17 13:00 11/30/17 13:35 Temperature Pulse Rate 68 80 Respiratory Rate Blood Pressure Pulse Oximetry Pulse Oximetry [Exertion on Room Air] 93 L Pulse Oximetry [Resting on Room Air] 94 L 11/30/17 14:00 11/30/17 15:00 11/30/17 15:12 Temperature Pulse Rate 74 71 71 Respiratory Rate 18 Blood Pressure Pulse Oximetry Pulse Oximetry [Exertion on Room Air] Pulse Oximetry [Resting on Room Air] 11/30/17 15:13 11/30/17 16:00 11/30/17 17:00 Temperature Pulse Rate 72 72 Respiratory Rate Blood Pressure Pulse Oximetry 94 L Pulse Oximetry [Exertion on Room Air] Pulse Oximetry [Resting on Room Air] 11/30/17 18:00 11/30/17 19:00 11/30/17 20:00 Temperature 97.9 F Pulse Rate 72 78 74 Respiratory Rate 16 Blood Pressure 112/63 Pulse Oximetry 93 L 93 L Pulse Oximetry [Exertion on Room Air] Pulse Oximetry [Resting on Room Air] 11/30/17 21:00 11/30/17 21:27 11/30/17 22:00 Temperature Pulse Rate 76 72 82 Respiratory Rate 16 Blood Pressure Pulse Oximetry Pulse Oximetry [Exertion on Room Air] Pulse Oximetry [Resting on Room Air] 11/30/17 23:00 12/01/17 00:00 12/01/17 01:00 Temperature 97.0 F L Pulse Rate 94 H 66 72 Respiratory Rate 16 16 Blood Pressure 105/57 L Pulse Oximetry 94 L Pulse Oximetry [Exertion on Room Air] Pulse Oximetry [Resting on Room Air] 12/01/17 02:00 12/01/17 03:00 12/01/17 03:08 Temperature 97.2 F L Pulse Rate 72 65 68 Respiratory Rate 16 16 Blood Pressure 112/68 Pulse Oximetry 94 L Pulse Oximetry [Exertion on Room Air] Pulse Oximetry [Resting on Room Air] 12/01/17 04:00 12/01/17 05:00 12/01/17 06:00 Temperature Pulse Rate 71 65 67 Respiratory Rate 16 Blood Pressure Pulse Oximetry Pulse Oximetry [Exertion on Room Air] Pulse Oximetry [Resting on Room Air] 12/01/17 07:00 12/01/17 08:00 Temperature 97.8 F Pulse Rate 74 Respiratory Rate 18 Blood Pressure 125/77 Pulse Oximetry 94 L 94 L Pulse Oximetry [Exertion on Room Air] Pulse Oximetry [Resting on Room Air] Intake & Output 11/30/17 12/01/17 12/01/17 18:59 06:59 18:59 Intake Total 720 / 720 480 / 480 Output Total 1100 / 1100 900 / 900 Balance -380 / -380 -420 / -420 Weight 49.1 kg Intake: Oral 720 / 720 480 / 480 Output: Urine 1100 / 1100 900 / 900 Other: Date of Last Bowel Movement 11/28/17 11/28/17 Results Procedures completed during hospitalization: Echo 11/29/2017 The left ventricular systolic function is severely reduced with an estimated ejection fraction less than 20%. Severely dilated left ventricle. There is global left ventricular dysfunction. The right ventricular systoilc function is moderately decreased. Mild mitral valve regurgitation. Labs on day of discharge: Labs from last 24 hours 11/30/17 13:10 Sodium 140 Potassium 3.7 Chloride 98 Carbon Dioxide 32.7 H Anion Gap 9 BUN 24 H Creatinine 0.92 Estimated GFR 60 L Random Glucose 80 Calcium 9.4 D - Impressions ITS Impressions Chest X-Ray 11/28/17 15:06 CONCLUSION: Heart remains enlarged. Lungs are clear. Discharge Plan - Discharge Disposition Patient Disposition: 01 Discharge Home - Discharge Condition Condition: Fair - Discharge Order Discharge Orders: Discharge Order (Routine); Ordered 12/01/17 Ordered By: Betzaida Fraser - Discharge Details Anticipated Discharge Date: 12/01/17 Discharge Comment: Discharge after Walk test. - Physicians Team Primary Care Provider: UNKNOWN, Attending Provider: Betzaida Fraser Other Providers: Gerry Owen MD ; Francois Parrish
[2017-12-01 10:18] VITALS: RESP 16
[2017-12-01] MEDS ORDERED: Isosorbide Mononitrate 30 MG ER 24HR Tablet (Imdur) PO SCH (14:00)
[2017-12-01 15:56] VITALS: BP 106/64; TEMP 98.1; O2SAT 93
[2017-12-01 16:34] VITALS: PULSE 74
--- NOTE | 2017-12-01 16:36 | P.PNCA ---
Subjective Interval history: No events overnight Breathing much better Physical Exam Vital signs: Vital Signs 11/30/17 17:00 11/30/17 18:00 11/30/17 19:00 Temperature 97.9 F Pulse Rate 72 72 78 Respiratory Rate 16 Blood Pressure 112/63 Pulse Oximetry 93 L 11/30/17 20:00 11/30/17 21:00 11/30/17 21:27 Temperature Pulse Rate 74 76 72 Respiratory Rate 16 Blood Pressure Pulse Oximetry 93 L 11/30/17 22:00 11/30/17 23:00 12/01/17 00:00 Temperature 97.0 F L Pulse Rate 82 94 H 66 Respiratory Rate 16 16 Blood Pressure 105/57 L Pulse Oximetry 94 L 12/01/17 01:00 12/01/17 02:00 12/01/17 03:00 Temperature 97.2 F L Pulse Rate 72 72 65 Respiratory Rate 16 Blood Pressure 112/68 Pulse Oximetry 94 L 12/01/17 03:08 12/01/17 04:00 12/01/17 05:00 Temperature Pulse Rate 68 71 65 Respiratory Rate 16 16 Blood Pressure Pulse Oximetry 12/01/17 06:00 12/01/17 07:00 12/01/17 08:00 Temperature 97.8 F Pulse Rate 67 62 86 Respiratory Rate 18 Blood Pressure 125/77 Pulse Oximetry 94 L 94 L 12/01/17 09:00 12/01/17 10:00 12/01/17 10:17 Temperature Pulse Rate 86 72 Respiratory Rate 16 Blood Pressure Pulse Oximetry 12/01/17 11:00 12/01/17 12:00 12/01/17 13:00 Temperature 98.0 F Pulse Rate 88 74 80 Respiratory Rate 16 Blood Pressure 100/55 L Pulse Oximetry 94 L 12/01/17 14:00 12/01/17 15:00 Temperature 98.1 F Pulse Rate 84 78 Respiratory Rate 16 Blood Pressure 106/64 Pulse Oximetry 93 L Intake & Output 11/30/17 12/01/17 12/01/17 18:59 06:59 18:59 Intake Total 720 / 720 480 / 480 Output Total 1100 / 1100 900 / 900 Balance -380 / -380 -420 / -420 Weight 49.1 kg Intake: Oral 720 / 720 480 / 480 Output: Urine 1100 / 1100 900 / 900 Other: Date of Last Bowel Movement 09/12/0711/28/17 11/28/17 Narrative: awake and alert, no acute distress anicteric no rales, no wheezes regular rhythm, paced on telemetry abdomen soft, nontender extremities no edmea nuero exam- unremarkable Assessment and Plan - Assessment (1) Non-ST elevation NH (NSTEMI) Code(s): I21.4 - Non-ST elevation (NSTEMI) myocardial infarction Status: Acute (2) Cardiomyopathy Code(s): I42.9 - Cardiomyopathy, unspecified Status: Acute (3) CHF exacerbation Code(s): I50.9 - Heart failure, unspecified Status: Acute - Plan 1) NICM Con't Coreg Cough, Lisinopril changed to Losartan 2) Decrease salt intake 3) Watch weights at home 2 pounds in 24 hours or 3 pounds in 48 hours, she should increase her diuretic 4) Elevated troponin Appears to be type 2 Decided she would not like stress testing 5) Musculoskeletal chest pain 6) Tobacco cessation 7) Cardiovascularly stable for discharge Will follow up with me in the office (2) Cardiomyopathy Qualifiers: Cardiomyopathy type: unspecified Qualified Code(s): I42.9 - Cardiomyopathy, unspecified
== END 2017-12-01 18:15 | disposition home or self-care (01) ==
LOC: NEPC 14:34 → NEDA 18:37 → HCIS 20:55
PROVIDERS: ADMIT Hospitalist; ATTEND Hospitalist